=== PATIENT | female | born 1960 | race Caucasian/White ===

== ENCOUNTER 2020-01-17 00:55 | Observation (INO) | payer BC ==
[2020-01-17 01:28] LABS: Basophils # (A) 0.1 k/uL (0-0.2); Basophils % (A) 1 %; Eosinophils # (A) 0.6 k/uL (0-0.7); Eosinophils % (A) 8 %; HCT 41.1 % (34.0-46.0); HGB 13.1 gm/dL (11.4-16.0); Lymphocytes # (A) 1.9 k/uL (1.0-4.8); Lymphocytes % (A) 24 %; MCH 28.3 pg (25.0-35.0); MCHC 31.9 g/dL (31.0-37.0); MCV 88.7 fL (80.0-100.0); Mean Platelet Volume 8.5; Monocytes # (A) 0.6 k/uL (0-1.0); Monocytes % (A) 8 %; Neutrophils # (A) 4.3 k/uL (1.3-7.7); Neutrophils % (A) 57 %; Platelet Count 227 k/uL (150-450); RBC 4.63 m/uL (3.80-5.40); RDW 13.4 % (11.5-15.5); WBC 7.6 k/uL (3.8-10.6)
--- NOTE | 2020-01-17 01:28 | ED ---
General Adult HPI - General Chief complaint: Arrhythmia/Palpitations Stated complaint: Palpitations Time Seen by Provider: 01/17/20 00:57 Source: patient, EMS, RN notes reviewed, old records reviewed Mode of arrival: EMS Limitations: no limitations - History of Present Illness Initial comments: 59-year-old female history of ventricular tachycardia presenting for evaluation of palpitations. Patient is currently on 75 mg of metoprolol twice daily. She has been compliant with these medications. Several hours prior to arrival she began feeling an irregular heartbeat followed by fast heart rate and palpitations. She states she's had several episodes in the past but it has been at least 3 years since she's had a prolonged episode similar to this evening. She denies associated chest pain or dyspnea. She states she felt lightheaded somewhat confused during this episode. She had nausea without vomiting. Denies fever. Denies cough. Denies abdominal pain or chest pain. - Related Data Allergies Allergy/AdvReac Type Severity Reaction Status Date / Time erythromycin base Allergy Rash/Hives Verified 01/17/20 01:01 Sulfa (Sulfonamide Allergy Rash/Hives Verified 01/17/20 01:01 Antibiotics) Review of Systems ROS Statement: Those systems with pertinent positive or pertinent negative responses have been documented in the HPI. ROS Other: All systems not noted in ROS Statement are negative. Past Medical History Past Medical History: No Reported History Additional Past Medical History / Comment(s): vtach, RVT History of Any Multi-Drug Resistant Organisms: None Reported Past Surgical History: Appendectomy, Bariatric Surgery, Section, Cholecystectomy Past Psychological History: Anxiety Smoking Status: Never smoker Past Alcohol Use History: None Reported Past Drug Use History: None Reported General Exam Limitations: no limitations General appearance: alert, in no apparent distress Head exam: Present: atraumatic, normocephalic Eye exam: Present: normal appearance, PERRL ENT exam: Present: normal exam Neck exam: Present: normal inspection. Absent: tenderness, meningismus Respiratory exam: Present: normal lung sounds bilaterally. Absent: respiratory distress Cardiovascular Exam: Present: regular rate, normal rhythm GI/Abdominal exam: Present: soft. Absent: distended, tenderness, guarding Extremities exam: Present: normal inspection, normal capillary refill. Absent: pedal edema Neurological exam: Present: alert, oriented X3, CN II-XII intact. Absent: motor sensory deficit Psychiatric exam: Present: normal affect, normal mood Skin exam: Present: warm, dry, intact. Absent: cyanosis, diaphoretic Course Vital Signs 01/17/20 01/17/20 00:56 01:06 Temperature 97.9 F Pulse Rate 66 63 Respiratory 20 20 Rate Blood Pressure 142/84 131/80 O2 Sat by Pulse 100 100 Oximetry EKG Findings - EKG Comments: EKG Findings:: EKG: Normal sinus rhythm, left axis deviation, rate of 60, CT interval 174, QRS duration 86, QTC 398, no ST segment elevation. Medical Decision Making - Medical Decision Making 59-year-old female presenting with palpitations, have high level of suspicious that this patient was in V. tach given her symptoms and history. Workup in the emergency department reveals sinus rhythm EKG she does have significant PVCs on the monitor, no runs of ventricular tachycardia while in the emergency department. She has normal CBC, normal electrolytes. She's given additional 25 mg of metoprolol on top of her daily dose of 75 mg. She will be placed in observation on telemetry with cardiology on consultation. I discussed case with Dr. De La Rosa who will admit. - Lab Data Result diagrams: 01/17/20 01:08 01/17/20 01:08 Lab Results 01/17/20 01/17/20 01/17/20 Range/Units 01:08 01:08 01:08 WBC 7.6 (3.8-10.6) k/uL RBC 4.63 (3.80-5.40) m/uL Hgb 13.1 (11.4-16.0) gm/dL Hct 41.1 (34.0-46.0) % MCV 88.7 (80.0-100.0) fL MCH 28.3 (25.0-35.0) pg MCHC 31.9 (31.0-37.0) g/dL RDW 13.4 (11.5-15.5) % Plt Count 227 (150-450) k/uL Neutrophils % 57 % Lymphocytes % 24 % Monocytes % 8 % Eosinophils % 8 % Basophils % 1 % Neutrophils # 4.3 (1.3-7.7) k/uL Lymphocytes # 1.9 (1.0-4.8) k/uL Monocytes # 0.6 (0-1.0) k/uL Eosinophils # 0.6 (0-0.7) k/uL Basophils # 0.1 (0-0.2) k/uL PT 9.6 (9.0-12.0) sec INR 0.9 (<1.2) APTT 22.4 (22.0-30.0) sec Sodium 139 (137-145) mmol/L Potassium 4.5 (3.5-5.1) mmol/L Chloride 106 (98-107) mmol/L Carbon Dioxide 25 (22-30) mmol/L Anion Gap 8 mmol/L BUN 20 H (7-17) mg/dL Creatinine 0.72 (0.52-1.04) mg/dL Est GFR (CKD-EPI)AfAm >90 (>60 ml/min/1.73 sqM) Est GFR (CKD-EPI)NonAf >90 (>60 ml/min/1.73 sqM) Glucose 95 (74-99) mg/dL Calcium 9.0 (8.4-10.2) mg/dL Magnesium 2.3 (1.6-2.3) mg/dL Total Bilirubin 0.3 (0.2-1.3) mg/dL AST 27 (14-36) U/L ALT 20 (4-34) U/L Alkaline Phosphatase 142 H (38-126) U/L Troponin I (0.000-0.034) ng/mL Total Protein 6.4 (6.3-8.2) g/dL Albumin 3.5 (3.5-5.0) g/dL 01/17/20 Range/Units 01:08 WBC (3.8-10.6) k/uL RBC (3.80-5.40) m/uL Hgb (11.4-16.0) gm/dL Hct (34.0-46.0) % MCV (80.0-100.0) fL MCH (25.0-35.0) pg MCHC (31.0-37.0) g/dL RDW (11.5-15.5) % Plt Count (150-450) k/uL Neutrophils % % Lymphocytes % % Monocytes % % Eosinophils % % Basophils % % Neutrophils # (1.3-7.7) k/uL Lymphocytes # (1.0-4.8) k/uL Monocytes # (0-1.0) k/uL Eosinophils # (0-0.7) k/uL Basophils # (0-0.2) k/uL PT (9.0-12.0) sec INR (<1.2) APTT (22.0-30.0) sec Sodium (137-145) mmol/L Potassium (3.5-5.1) mmol/L Chloride (98-107) mmol/L Carbon Dioxide (22-30) mmol/L Anion Gap mmol/L BUN (7-17) mg/dL Creatinine (0.52-1.04) mg/dL Est GFR (CKD-EPI)AfAm (>60 ml/min/1.73 sqM) Est GFR (CKD-EPI)NonAf (>60 ml/min/1.73 sqM) Glucose (74-99) mg/dL Calcium (8.4-10.2) mg/dL Magnesium (1.6-2.3) mg/dL Total Bilirubin (0.2-1.3) mg/dL AST (14-36) U/L ALT (4-34) U/L Alkaline Phosphatase (38-126) U/L Troponin I <0.012 (0.000-0.034) ng/mL Total Protein (6.3-8.2) g/dL Albumin (3.5-5.0) g/dL Disposition Clinical Impression: Palpitations, Ventricular tachycardia Disposition: ADMITTED IP TO THIS [facility] Condition: Stable Is patient prescribed a controlled substance at d/c from ED?: No Referrals: Diana Inman MD [Primary Care Provider] - 1-2 days Decision to Admit Reason: Admit from EC Decision Date: 01/17/20 Decision Time: 03:00
[2020-01-17 01:39] LABS: ALT 20 U/L (4-34); AST 27 U/L (14-36); African American GFR (CKD) >90 (>60 ml/min/1.73 sqM); Albumin 3.5 g/dL (3.5-5.0); Alkaline Phosphatase 142 U/L (38-126); Anion Gap 8 mmol/L; Blood Urea Nitrogen 20 mg/dL (7-17); Carbon Dioxide 25 mmol/L (22-30); Chloride 106 mmol/L (98-107); Glucose 95 mg/dL (74-99); Magnesium 2.3 mg/dL (1.6-2.3); Non-African American GFR(CKD) >90 (>60 ml/min/1.73 sqM); Sodium 139 mmol/L (137-145); Total Bilirubin 0.3 mg/dL (0.2-1.3); Total Protein 6.4 g/dL (6.3-8.2)
[2020-01-17 01:47] LABS: INR 0.9 (<1.2); Partial Thromboplastin Time 22.4 sec (22.0-30.0); Prothrombin Time 9.6 sec (9.0-12.0)
[2020-01-17 01:58] LABS: Potassium 4.5 mmol/L (3.5-5.1)
--- NOTE | 2020-01-17 02:06 | XR ---
EXAMINATION TYPE: XR chest 2V DATE OF EXAM: 01/17/2020 COMPARISON: NONE HISTORY: Palpitation TECHNIQUE: FINDINGS: Heart and mediastinum are normal. Lungs are clear. Diaphragm is normal. Bony thorax appears normal. IMPRESSION: Normal chest.
[2020-01-17] MEDS ORDERED: METOPROLOL TARTRATE 25 MG TAB PO STA (02:25)
[2020-01-17] MEDS ORDERED: ACETAMINOPHEN TAB 325 MG TAB PO PRN (02:56)
[2020-01-17] MEDS ORDERED: NALOXONE 0.4 MG/ML 1 ML VIAL IV PRN (02:56)
[2020-01-17] MEDS ORDERED: SODIUM CHLORIDE 0.9% 1,000 ML IV SCH (03:00)
[2020-01-17 03:58] VITALS: PULSE 90
[2020-01-17 04:10] VITALS: RESP 16
[2020-01-17 08:37] VITALS: BP 101/55; TEMP 97.3
[2020-01-17] MEDS ORDERED: METOPROLOL TARTRATE 50 MG TAB PO SCH (09:00)
--- NOTE | 2020-01-17 11:39 | ECHOF ---
Referral Reason:vt MEASUREMENTS -------- HEIGHT: 175.3 cm WEIGHT: 86.2 kg BP: RVIDd: 3.5 cm (< 3.3) IVSd: 0.9 cm (0.6 - 1.1) LVIDd: 4.5 cm (3.9 - 5.3) LVPWd: 1.0 cm (0.6 - 1.1) IVSs: 1.3 cm LVIDs: 2.6 cm LVPWs: 2.0 cm LAESV Index (A-L): 16.13 ml/m Ao Diam: 3.2 cm (2.0 - 3.7) AV Cusp: 2.1 cm (1.5 - 2.6) LA Diam: 1.9 cm (2.7 - 3.8) MV EXCURSION: 20.477 mm (> 18.000) MV EF SLOPE: 129 mm/s (70 - 150) EPSS: 0.5 cm MV E Chai: 0.78 m/s MV DecT: 205 ms MV A Chai: 0.69 m/s MV E/A Ratio: 1.14 RAP: 5.00 mmHg RVSP: 28.84 mmHg FINDINGS -------- Sinus rhythm. This was a technically good study. The left ventricular size is normal. Left ventricular wall thickness is normal. Overall left vent ricular systolic function is normal with, an EF between 55 - 60 %. The diastolic filling pattern is normal for the age of the patient 11.59. The right ventricle is mildly enlarged. The left atrial size is normal. Normal LA size by volume 22+/-6 ml/m2. The right atrial size is normal. Interatrial and interventricular septum intact. The aortic valve is trileaflet and appears structurally normal. The mitral valve is normal. There is trace mitral regurgitation. The tricuspid valve appears structurally normal. Trace tricuspid regurgitation present. Right francheska tricular systolic pressure is normal at < 35 mmHg. There is no pulmonic regurgitation present. The aortic root size is normal. Normal inferior vena cava with normal inspiratory collapse consistent with estimated right atrial pre ssure of 5 mmHg. There is no pericardial effusion. CONCLUSIONS -------- 1. Sinus rhythm. 2. This was a technically good study. 3. The left ventricular size is normal. 4. Left ventricular wall thickness is normal. 5. Overall left ventricular systolic function is normal with, an EF between 55 - 60 %. 6. The diastolic filling pattern is normal for the age of the patient 11.59 7. The right ventricle is mildly enlarged. 8. The left atrial size is normal. 9. Normal LA size by volume 22+/-6 ml/m2. 10. The right atrial size is normal. 11. Interatrial and interventricular septum intact. 12. The aortic valve is trileaflet and appears structurally normal. 13. The mitral valve is normal. 14. There is trace mitral regurgitation. 15. The tricuspid valve appears structurally normal. 16. Trace tricuspid regurgitation present. 17. Right ventricular systolic pressure is normal at < 35 mmHg. 18. There is no pulmonic regurgitation present. 19. The aortic root size is normal. 20. Normal inferior vena cava with normal inspiratory collapse consistent with estimated right atrial pressure of 5 mmHg. 21. There is no pericardial effusion. DRAPERY WORKER: Jory Malave RDCS
--- NOTE | 2020-01-17 12:47 | CONS ---
CONSULTATION CHIEF COMPLAINT: Palpitations. Leia is a 59-year-old lady with history of palpitations secondary to right ventricular outflow tract. tachycardia, that lives in [facility] regularly, but was at her [place] in [place] and developed sustained palpitations at home due to which she came to the ER. For several hours prior to coming to hospital, she was having sustained palpitations and felt dizzy and unwell. She called EMS, which brought her to the hospital. When she first arrived in the ER, her EKG showed sinus rhythm, left axis deviation with poor R-wave progression. There were no documented episodes of cardiac arrhythmia. Her monitor apparently showed significant PVCs, but there were no runs of VT. The patient is on metoprolol 75 mg b.i.d. and since being admitted she has done well and has not had any episodes of cardiac arrhythmia. She has had 2 sets of troponins that have been negative. She follows with a loan examiner regularly and apparently had evaluation by an animal cruelty investigator 3 years ago and was advised beta blockers. PAST MEDICAL HISTORY: Significant for right ventricular outflow tract tachycardia. MEDICATIONS: She is on metoprolol 75 b.i.d. ALLERGY: To ERYTHROMYCIN and SULFA. FAMILY HISTORY: Negative for premature coronary artery disease. SOCIAL HISTORY: Negative for current smoking, EtOH abuse, or drug abuse. REVIEW OF SYSTEMS: HEENT: Unremarkable. CARDIAC: As described above. RESPIRATORY: As described above. GI: Negative. GENITOURINARY: Negative. ALLERGY/IMMUNOLOGY: Negative. SKIN: Negative. MUSCULOSKELETAL: Negative for arthritis. PSYCHOSOCIAL: Negative. ENDOCRINE: Negative. DERM: Negative. CONSTITUTIONAL: Negative. ONCOLOGICAL: Negative. Rest of the system review is not relevant. On exam, patient is comfortable at rest. Vital signs are stable. There is no jugular venous distention. Chest exam reveals good air entry bilaterally. Heart exam reveals first and second heart sounds. No gallop. No murmur. Abdomen is soft, exam of extremities did not reveal any edema. Peripheral pulses are felt. LABS: Show that 2 sets of troponins are negative. EKG is as described above. ASSESSMENT: 1. Palpitations, probably due to ventricular tachycardia. 2. History of right ventricular outflow tract tachycardia. PLAN: 1. I am going to obtain her records from her primary loan examiner. 2. I will obtain an echocardiogram to evaluate her LV function and a stress test. If this workup is benign and unremarkable, we will continue the beta blockers that she is currently on. I cannot increase the dose of beta blockers as the blood pressure is already low and she will have follow up with her own loan examiner and the animal cruelty investigator that has evaluated her in the past. LUZ / ARTURO: [id number] /
[2020-01-17] MEDS ORDERED: METOPROLOL SUCCINATE (ER) 25 MG TAB.ER.24H PO SCH (13:00)
[2020-01-17] MEDS ORDERED: METOPROLOL SUCCINATE (ER) 50 MG TAB.ER.24H PO SCH (13:00)
[2020-01-17] MEDS ORDERED: DULoxetine HCL 60 MG CAPSULE.DR PO SCH (13:00)
[2020-01-17] MEDS: LORATADINE 10 MG TAB PO SCH ×2 (13:03→13:05)
--- NOTE | 2020-01-17 16:47 | HP ---
HISTORY AND PHYSICAL CHIEF COMPLAINT: Palpitations. HISTORY OF PRESENT ILLNESS: This is the first admission here for this 59-year-old white female. She presented to the emergency room with palpitations where she was found to have frequent PVCs. She has a history of ventricular tachycardia. History is a little bit unusual in that she goes to a product development specialist who says that her ventricular tachycardia events are "benign." When she gets runs of these, she gets lightheaded. She has never completely passed out. This is not associated with history of murmurs, rheumatic fever, congenital heart disease, orthopnea, PND, etc. It was felt that she should be admitted for observation. She lives elsewhere and is visiting her cabin in [place]. Her beta tyler is the only medicines she has ever been prescribed. She has never been on any other medications such as amiodarone or other anti arrhythmics. Defibrillator has never been discussed. REVIEW OF SYSTEMS: She has had no difficulty with vision or hearing, headache, neurologic problems, seizures, shortness of breath, cough, hemoptysis, murmurs, rheumatic fever, orthopnea, PND, abdominal pain, nausea, vomiting, hematemesis, melena, hematochezia, colitis, diverticulosis, diverticulitis, hemorrhoids, jaundice, hepatitis, cirrhosis, renal failure, hematuria, dysuria, vaginal discharge, bleeding, diabetes, etc. PAST MEDICAL HISTORY, FAMILY HISTORY, PERSONAL AND SOCIAL HISTORIES: Reveal that she cannot take erythromycin or sulfa. She is on Cymbalta and metoprolol. She takes metoprolol 75 mg twice a day. Surgically, she has had bariatric procedure for weight loss and a . FAMILY HISTORY: Significant in that her mother had rheumatic heart disease and did succumb to this. She does not smoke. She does not drink. PHYSICAL EXAMINATION: Blood pressure is 121/64 with a pulse of 73 and regular. Respirations are 10 and she is afebrile. In general, she appeared to be well developed, well nourished, in no acute distress. Skin color is normal, skin is warm, dry. Lymph nodes not enlarged. Head, ears, eyes, nose, mouth, and throat are normal, neck veins are not distended. Thyroid is not enlarged. Chest is clear. The cardiac exam demonstrates normal sinus rhythm and no murmurs or extra sounds. There is no S3 or S4. The abdomen is soft, nontender without visceromegaly or masses. Bowel sounds are present. The extremities are normal. Neurologicallly, she is intact. IMPRESSION: 1. PVCs. 2. History of ventricular tachycardia. PLAN: 1. Bed rest. 2. IV fluids. 3. Telemetry. 4. Consult Cardiology. LUZ / ARTURO: [id number] /
--- NOTE | 2020-01-18 01:16 | DS ---
DISCHARGE SUMMARY CHIEF COMPLAINT: Palpitations. HISTORY OF PRESENT ILLNESS AND PHYSICAL EXAM: Details of this lady's history and physical can be found in the initial workup. LABORATORY STUDIES: While she was in the hospital she had laboratory studies, details of which can be found in the laboratory section of her chart. COURSE IN THE HOSPITAL: After admission she was placed on bedrest, started on intravenous fluids and placed on telemetry. She was seen by Cardiology. It was felt that she could be discharged and she will go home on her usual beta tyler and follow up with her own physician. FINAL DIAGNOSES: 1. Frequent PVCs. 2. History of ventricular tachycardia. OPERATIONS: None. CONSULTATIONS: Cardiology. She is improved. MMODL / IJN: [id number] /
--- NOTE | 2020-01-18 10:35 | ECHOS ---
STRESS ECHOCARDIOGRAM FREDERICASON: Edward INDICATIONS: Ventricular Tachycardia MEDICATIONS: BASELINE HEART RATE: 85 BASELINE BLOOD PRESSURE: 112/76 MAXIMUM HEART RATE: 118 MAXIMUM BLOOD PRESSURE: 123/75 85% MPHR: 138 100% MPHR: 162 METS: 7.5 MAXIMUM STAGE REACHED: 3 TOTAL EXERCISE TIME: 6:13 CLINICAL INFORMATION: Baseline EKG revealed normal sinus rhythm without significant ST-T changes. There was some poor R-wave progression over precordial leads. Patient walked for 6 minutes, 13 seconds and as she went to the third stage, she could not walk, complained of fatigue and wished to stop the stress test. She had isolated PVCs to begin with. These PVCs increased in frequency as exercise progressed. However, she did not have any repetitive beats. Her maximal heart rate was 123 beats per minute which is much less than 85% of her predicted maximal heart rate. At this exercise level, she did not have angina. She had fatigue. EKG did not reveal any ST-segment changes to indicate ischemia. This is therefore an inconclusive stress test with limited exercise capacity with frequent isolated PVCs, but no angina was reported. This is an inconclusive stress test. Baseline echo images revealed normal wall motion and wall thickening of all segments. At peak exercise, which was less than 85% of her predicted maximal heart rate. A peak heart rate of only 123 beats was noted. At this level, there was good augmentation of left ventricular wall motion and wall thickening of all segments suggesting that there is no ischemia at a heart rate of about 120 beats per minute. IMPRESSION: 1. Limited exercise capacity. Inconclusive stress test because of inadequate chronotropic response. Isolated PVCs were noted. No angina was reported. This is therefore an inconclusive stress test by EKG criteria. 2. Inconclusive stress echocardiogram because of inadequate chronotropic response. Isolated PVCs were noted. The patient has a diagnosis of right ventricular outflow tract PVCs. This is therefore an inconclusive stress echocardiogram. MMODL / IJN: [id number] /
== END 2020-01-17 15:13 | disposition home or self-care (01) ==
LOC: EC 00:55 → 3SCARD 02:56
PROVIDERS: ADMIT Family Medicine; ATTEND Family Medicine
DX: I49.3 Ventricular premature depolarization (principal); Z86.79 Personal history of other diseases of the circulatory system; R11.0 Nausea; F41.9 Anxiety disorder, unspecified; Z88.2 Allergy status to sulfonamides; Z88.1 Allergy status to other antibiotic agents; Z90.49 Acquired absence of other specified parts of digestive tract; Z79.899 Other long term (current) drug therapy; Z82.49 Family history of ischemic heart disease and other diseases of the circulatory system; Z11.59 Encounter for screening for other viral diseases
CPT/HCPCS: 99285; 36415; 93005; 93306; 93351; 84439; 80053; 83735; 84484; 85025; 85610; 85730; 87635; 71046; G0378